=== PATIENT | male | born 1935 | race Caucasian/White ===

== ENCOUNTER 2018-06-22 12:55 | Emergency (ER) | payer MEDICARE ==
[2018-06-22 13:14] LABS: #Basophils 0.1 thou/uL (0.0-0.2); #Eosinphils 0.1 thou/uL (0.0-0.7); #Lymphocytes 1.1 thou/uL (1.20-3.40); #Monocytes 0.6 thou/uL (0.11-0.59); #Neutrophils 3.6 thou/uL (1.40-6.50); %Basophils 1.7 % (0.0-1.0); %Eosinophils 1.5 % (0.0-10.0); %Lymphocytes 20.8 % (21.0-51.0); %Monocytes 10.2 % (0.0-10.0); %Neutrophils 65.9 % (42.0-75.0); Hemoglobin 10.7 g/dL (14.0-18.0); Mean Corpuscular HGB CONC 35.3 g/dL (32.0-36.0); Mean Corpuscular Hemoglobin 31.1 pg (27.0-31.0); Mean Corpuscular Volume 88.2 fL (78.0-98.0); Mean Platelet Volume 5.4 fL (7.4-10.4); Platelet Count 133 thou/uL (130-400); RBC Distribution Width 13.8 % (11.5-14.5); Red Blood Cell (RBC) Count 3.43 mill/uL (4.70-6.10); White Blood Cell (WBC) Count 5.5 thou/uL (4.8-10.8)
[2018-06-22 13:18] LABS: Bilirubin Negative (Negative); Blood, Urine Trace (Negative); Clarity Clear (Clear); Glucose, Urine (Dipstick) Negative (Negative); Leukocyte Moderate (Negative); Nitrite Negative (Negative); Protein, Urine (Dipstick) Negative (Neg-Trace); Urobilinogen 0.2 mg/dL (0.2-1.0)
[2018-06-22 13:20] LABS: INR-International Normal Ratio 2.5; Prothrombin Time 26.7 SEC (12.0-14.7)
[2018-06-22 13:27] LABS: ALT (SGPT) 22 U/L (8-55); AST (SGOT) 38 U/L (5-34); Albumin 3.4 g/dL (3.4-4.8); Alkaline Phosphatase 256 U/L (40-150); Anion Gap 16 mmol/L (10-20); BUN (Urea Nitrogen) 33 mg/dL (8.4-25.7); Bilirubin, Total 2.2 mg/dL (0.2-1.2); Calc. Creatinine Clearance 0 mL/min (70-130); Calcium 9.1 mg/dL (7.8-10.44); Carbon Dioxide 25 mmol/L (23-31); Chloride 102 mmol/L (98-107); Estimated GFR-MDRD 62; Glucose 111 mg/dL (83-110); Lipase 24 U/L (8-78); Potassium 3.5 mmol/L (3.5-5.1); Protein, Total 6.4 g/dL (5.8-8.1); Sodium 139 mmol/L (136-145)
[2018-06-22 13:28] LABS: Bacteria/HPF Rare-Few HPF (None Seen); RBC/HPF 0-3 HPF (0-3); Squamous Epithelial 0-3 HPF (0-3); WBC/HPF 0-3 HPF (0-3)
--- NOTE | 2018-06-22 14:27 | CT ---
CT BRAIN WITHOUT CONTRAST: Date: 06/22/18 HISTORY: Trauma. Injury. FINDINGS: No acute hemorrhage or infarct. No midline shift or mass effect. There are mild microvascular ischemi c changes. The paranasal sinuses and mastoids are clear. IMPRESSION: 1. No acute intracranial abnormality. 2. Moderate microvascular ischemic changes. POS: [facility]
--- NOTE | 2018-06-22 14:30 | CT ---
CT CERVICAL SPINE NONCONTRAST: Date: 06/22/18 INDICATION: Post-traumatic neck pain, injury. FINDINGS: There is moderate multilevel degenerative change throughout the cervical spine. There is trace spondy lolisthesis at C2-3 and C3-4. Craniocervical junction is intact. No acute facet malalignment or signi ficant retropulsion of bone. There is incidental note of atherosclerosis. IMPRESSION: Moderate multilevel degenerative change cervical spine, without acute fracture identified. POS: [id number]
[2018-06-22] MEDS ORDERED: Bacitracin Zinc 1 Packet ONE (14:45)
--- NOTE | 2018-06-22 15:00 | CT ---
CT CHEST WITH CONTRAST CT ABDOMEN WITH CONTRAST CT PELVIS WITH CONTRAST LIMITED CT LUMBOSACRAL SPINE WITH CONTRAST LIMITED CT THORACIC SPINE WITH CONTRAST: Date: 06/22/18 HISTORY: TRAUMA FINDINGS: Heart size is markedly enlarged. There is marked left atrial dilatation. There is a large right pleur al effusion. Mild pulmonary venous congestion. Dense mitral annular calcifications along with a mitral valve replacement. Median sternotomy wires. No evidence for acute aortic injury. The left atrium abuts the anterior thoracic vertebral bodies. There is small volume ascites. Small volume free fluid in the pelvis. Interpolar left kidney is hypod ense measuring fluid attenuation. No definite hepatic laceration. No definite splenic laceration. The pancreas is atrophied. No dilated loops of large or small bowel. There is compression fracture of L2 with approximately 50% anterior height loss. There is a posterior disc osteophyte at this level narrowing spinal canal and neural foramina. There is also compression deformity at L1 with approximately 80% anterior height loss with some low grade retropulsion. The spi nal canal at this level is narrowed to approximately 7.0 mm. This is not definitively acute. Compress ion fractures present of T12, not definitively acute, with 10-15% anterior height loss. There is bilateral neural foraminal narrowing at L4-5 due to posterior disc osteophyte complex as wel l as facet arthropathy. There is sclerosis of the pubic symphysis, likely chronic in nature. No defin ite pelvic fracture is appreciated. There is a right-sided fat-containing indirect inguinal hernia extending into the inguinal canal. Healing right anterior fifth rib fracture. Likely old posterolateral seventh rib fracture. No acute r ib fractures. IMPRESSION: 1. No definite acute abnormality within the chest, abdomen, or pelvis. 2. Marked cardiomegaly with marked left atrial enlargement. 3. Pulmonary arterial hypertension. 4. Large right layering pleural effusion. 5. Small volume ascites, which is not felt to be hemorrhage. 6. No solid organ injury within the abdomen or pelvis. 7. Numerous compression deformities thoracolumbar spine. These are not definitively acute. There is, however, some retropulsion at L1 compression fracture with some narrowing of the neural foramina and spinal canal. 8. Large, fat-containing, right-sided direct inguinal hernia extending into the inguinal canal. 9. Moderate diverticular disease sigmoid colon without active current inflammation. POS: [facility]
[2018-06-22 15:01] LABS: CKMB 2.7 ng/mL (0-6.6); Troponin I 0.066 ng/mL (< 0.028)
== END 2018-06-22 16:16 | disposition home or self-care (01) ==
LOC: BURERS 12:55 → EDBD 12:55 → BURERS 16:16
DX: S01.412A Laceration without foreign body of left cheek and temporomandibular area, initial encounter (principal); S01.81XA Laceration without foreign body of other part of head, initial encounter; S01.512A Laceration without foreign body of oral cavity, initial encounter; S51.011A Laceration without foreign body of right elbow, initial encounter; S20.219A Contusion of unspecified front wall of thorax, initial encounter; S30.1XXA Contusion of abdominal wall, initial encounter; S50.12XA Contusion of left forearm, initial encounter; S50.11XA Contusion of right forearm, initial encounter; I51.7 Cardiomegaly; I50.9 Heart failure, unspecified; J90 Pleural effusion, not elsewhere classified; V89.2XXA Person injured in unspecified motor-vehicle accident, traffic, initial encounter; Z79.899 Other long term (current) drug therapy
CPT/HCPCS: 70450; 71260; 72125; 74177; 80053; 81003; 81015; 82553; 83690; 83880; 84484; 85025; 85610; 85730; 94640; 94760; G0390; J7620